=== PATIENT | male | born 1985 | race Caucasian/White ===

== ENCOUNTER 2021-09-29 22:20 | Emergency (ER) | payer OTHER ==
[~2021-09-29] VITALS: Ht 172.7 cm; Wt 120.0 kg
--- OUTSIDE RECORDS SUMMARY | 2021-09-29 22:24 | XMS REPORT | Clinical Summary ---
Author Author [facility] Organization [facility] Address Unknown Phone Unavailable Care Team Providers Care General Ophthalmologist Name Role Phone PCP Unavailable Allergies No known active allergies Medications End Date Status Medication Sig Dispensed Refills Start Date Active metoprolol (LOPRESSOR) 50 Take 50 mg by 0 MG tablet mouth 2 (two) times a day. Active Problems Not on file Encounters Not on filefrom Last 3 Months Immunizations Not on file Social History Date Tobacco Use Types Packs/Day Years Used Never Assessed Sex Assigned at Date Recorded Not on file Last Filed Vital Signs Reading Time Taken Comments Vital Sign - - Blood Pressure 93 01/15/2021 4:17 PM CDT Pulse 36.2 C (97.2 F) 01/15/2021 4:17 PM CDT Temperature - - Respiratory Rate 96% 01/15/2021 4:17 PM CDT Oxygen Saturation - - Inhaled Oxygen Concentration - - Weight - - Height - - Body Mass Index Plan of Treatment Not on file Goals Not on file Implants Not on file Procedures Not on filefrom Last 3 Months Results Not on filefrom Last 3 Months Additional Health Concerns Not on file Insurance Type Payer Benefit Subscriber ID Effective Phone Address Plan / Dates Group [facility] 2020-P [place] [employer] [facility] [id number]
--- NOTE | 2021-09-29 22:55 | ED General ---
General Chief Complaint: COVID19 Suspect/Confirmed Stated Complaint: COVID POSITIVE - SOA / COUGH Nursing Triage Note: PT AMB TO RM 8 W REPORTS OF N/V/D, FEVERS, COUGH, AND SOA SX LAST TUESDAY. PT TOOK AT HOME COVID TEST ON TUESDAY WHICH RESULTED POSITIVE. PT TO ED TONIGHT D/T SOA, DENIES PAIN. A&OX4. Source of Information: Patient Exam Limitations: No Limitations History of Present Illness Date Seen by Provider: Sep 29, 2021 Time Seen by Provider: 22:30 Initial Comments Patient is a 35-year-old male who presents to the emergency department today with a chief complaint of Covid symptoms since last September 22. He complains of nausea, diarrhea, fevers and chills, nonproductive cough. States he did lose taste and smell. Took an at home Covid test last Tuesday the and it was positive. States he became more short of breath with exertion at home reporting sats as low as 86% at home. He came in today because of concern of the low numbers. States he actually feels a little bit better regarding all of his other symptoms other than the shortness of breath. No chest pain, no leg swelling or calf cramping. No family history of blood clotting disorders. Denies earache, runny nose or sore throat. Last dose of Tylenol/ibuprofen was earlier today around 230. Currently not nauseous. All other review of systems reviewed and negative except as stated. Timing/Duration: 1 Week Severity: Moderate Modifying Factors: improves with Rest Associated Systoms: Shortness of Air, Other (Diaphoresis) Allergies and Home Medications Allergies Coded Allergies: No Known Drug Allergies (Unverified , 09/30/21) Patient Home Medication List Home Medication List Reviewed: Yes Review of Systems Review of Systems Constitutional: see HPI EENTM: no symptoms reported Respiratory: dyspnea on exertion, short of breath Cardiovascular: no symptoms reported Gastrointestinal: diarrhea Genitourinary: no symptoms reported Musculoskeletal: no symptoms reported Skin: no symptoms reported Psychiatric/Neurological: No Symptoms Reported All Other Systems Reviewed Negative Unless Noted: Yes Past Zvrysxw-Culbbu-Xqlfad Hx Patient Social History Tobacco Use?: No Use of E-Cig and/or Vaping dev: No Substance use?: No Alcohol Use?: No Immunizations Up To Date Influenza Vaccine Up-to-Date: No; Not Current First/Initial COVID19 Vaccinat: NONE Second COVID19 Vaccination Boris: NONE Third COVID19 Vaccination Date: NONE COVID19 Vaccine Trim Technician: NONE Physical Exam Vital Signs Vital Signs - First Documented 09/29/21 22:26 Temp 36.3 Pulse 103 Resp 20 B/P (MAP) 175/92 (119) Pulse Ox 95 O2 Delivery Room Air Capillary Refill : Less Than 3 Seconds Height, Weight, BMI Height: '" Weight: lbs. oz. kg; 40.00 BMI Method: General Appearance: No Apparent Distress, WD/WN Eyes: Bilateral Eye Normal Inspection, Bilateral Eye PERRL, Bilateral Eye EOMI HEENT: PERRL/EOMI Neck: Normal Inspection Respiratory: Lungs Clear, Normal Breath Sounds, No Accessory Muscle Use, No Respiratory Distress Cardiovascular: Regular Rate, Rhythm, Normal Peripheral Pulses, Tachycardia (103) Gastrointestinal: Normal Bowel Sounds, Non Tender, Soft Extremity: Normal Capillary Refill, Normal Inspection, Normal Range of Motion, Non Tender, No Calf Tenderness, No Pedal Edema Neurologic/Psychiatric: Alert, Oriented x3, No Motor/Sensory Deficits, Normal Mood/Affect Skin: Normal Color, Diaphoresis Progress/Results/Core Measures Suspected Sepsis SIRS Temperature: Pulse: 103 Respiratory Rate: 20 Blood Pressure 175 /92 Mean: 119 Results/Orders Lab Results Laboratory Tests Test 09/29/21 22:30 Range/Units Influenza Type A (RT-PCR) Not Detected Not Detecte Influenza Type B (RT-PCR) Not Detected Not Detecte SARS-CoV-2 RNA (RT-PCR) Detected H Not Detecte My Orders Orders - DALLAS AN MD Chest 1 View, Ap/Pa Only (09/29/21 22:51) Covid 19 Inhouse Test (09/29/21 22:51) Influenza A And B By Pcr (09/29/21 22:51) Isolation Central Supply Req (09/29/21 22:51) Rx-Albuterol Inhaler (Rx-Ventolin Hfa In (09/30/21 00:20) Vital Signs/I&O 09/29/21 09/30/21 22:26 00:40 Temp 36.3 Pulse 103 103 Resp 20 22 B/P (MAP) 175/92 (119) 131/78 Pulse Ox 95 94 O2 Delivery Room Air Room Air Capillary Refill : Less Than 3 Seconds Blood Pressure Mean: 119 Progress Note : Time: 00:13 Progress Note Patient's PCR Covid is positive. His x-ray demonstrates patchy basilar infiltrates bilaterally. I got him up and walked him around the room multiple laps with pulse ox in place. He stayed at 90% the entire time. At one point I did see an 89 briefly but he rebounded quickly and stayed persistently at 90%. I talked to him about the monoclonal antibody infusion, provided him the paperwork to read about it. Advised him that it is still under EUA, he is interested in receiving this. I did caution him that his oxygen saturations may be too low for the infusion. I will go ahead and write out the order for him in the hopes that he can get it first thing tomorrow. Patient is in no distress. He does demonstrate dry cough. Blood pressure and pulse are good, he is slightly tachycardic with a heart rate of 101. He does not need steroids today but I told him that if he drops low (persistently below 90) he needs to come back to the emergency room, possibly be admitted and at the very least get started on steroids. Diagnostic Imaging Diagonstic Imaging: Xray Plain Films/CT/US/NM/MRI: chest Comments CXR interpreted by me - patchy basilar infiltrates Departure Impression Primary Impression: Pneumonia due to COVID-19 virus Disposition: 01 HOME, SELF-CARE Condition: Stable Departure-Patient Inst. Decision time for Depature: 00:15 Patient Instructions: COVID-19 (DC) Add. Discharge Instructions: Continue to drink plenty of fluids to stay well-hydrated. If your oxygen saturation drops persistently below 90, you need to come back to the emergency department for reevaluation. At that time you will need to be started on some steroids, possibly be admitted. I have written an order for you to get the monoclonal antibody infusion. You can call the hospital in the morning and asked to speak to scheduling to see what time you can come in and get this done. Your oxygen levels have to be above 90 to get the infusion. I have written you a prescription for an albuterol inhaler. 2 puffs every 4-6 hours as needed for shortness of breath may help. Albuterol can increase your heart rate a little bit. Tylenol and ibuprofen as needed for any temperature over 100.4. You will need to quarantine, self isolate, mask/social distance for 10 days after the onset of your illness. Contact the health department for further instruction. DALLAS AN MD Sep 29, 2021 22:55
[2021-09-30] MEDS ORDERED: RX-ALBUTEROL INHALER 8.5 GM HFA (PROAIR) IH STA (00:20)
[2021-09-30 00:40] VITALS: BP 131/78
--- NOTE | 2021-09-30 01:14 | Diagnostic Imaging Report ---
INDICATION: Shortness of breath. FINDINGS: The heart size is normal. There is some venous congestion. There are patchy bibasilar infiltrates. There is no pleural effusion or pneumothorax. The mediastinum is unremarkable. IMPRESSION: Patchy bibasilar infiltrates, right greater than left, and some mild central pulmonary venous congestion. Dictated by: Dictated on workstation # [id number]
== END 2021-09-30 00:40 | disposition home or self-care (01) ==
LOC: ER 22:22
DX: U07.1 COVID-19 (principal); J12.82 Pneumonia due to coronavirus disease 2019
CPT/HCPCS: 71045; 87636